=== PATIENT | female | born 1985 | race Caucasian/White ===

== ENCOUNTER 2021-05-12 19:52 | Emergency (ER) | payer OTHER ==
[~2021-05-12 19:52] MED LIST: ZOFRAN ODT 4 MG4 MG PO
== END 2021-05-12 22:13 | disposition home or self-care (01) ==
LOC: ER1 19:52
DX: J02.0 Streptococcal pharyngitis (principal); F17.290 Nicotine dependence, other tobacco product, uncomplicated; I10 Essential (primary) hypertension; Z20.822 Contact with and (suspected) exposure to COVID-19
CPT/HCPCS: 0240U; 87081; 87880; 99283; J0561